=== PATIENT | female | born 1970 | race Caucasian/White ===

== ENCOUNTER → 2020-11-01 | Outpatient (CLI) | payer BC ==
[2016-04-08 18:43] VITALS: BP 128/66
[~2020-11-01] MED LIST: ZESTRIL 10MG10 MG
== END ==
LOC: LAB 10:25
DX: Z01.812 Encounter for preprocedural laboratory examination (principal); Z20.822 Contact with and (suspected) exposure to COVID-19

== ENCOUNTER → 2020-11-06 | Day surgery (SDC) | payer BC ==
[2016-04-08 18:43] VITALS: BP 128/66
== END | disposition home or self-care (01) ==
LOC: MSO 07:19
DX: Z12.11 Encounter for screening for malignant neoplasm of colon (principal); D12.8 Benign neoplasm of rectum; D12.2 Benign neoplasm of ascending colon; E66.9 Obesity, unspecified; Z88.2 Allergy status to sulfonamides
CPT/HCPCS: 00811; J2704; J7120

== ENCOUNTER → 2023-10-01 | Outpatient (CLI) | payer BC | LOC: RAD 16:04 | DX: M17.11 Unilateral primary osteoarthritis, right knee (principal) ==